=== PATIENT | male | born 1980 | race Caucasian/White ===

== ENCOUNTER → 2017-09-04 | Outpatient (CLI) | payer OTHER ==
[~2017-09-04] MED LIST: METHACHOLINE KIT (J7674) INH ONE
--- NOTE | 2017-09-04 16:06 | PFTRPT ---
Tech: Carlos OBRIEN RRT Age: 37 Sex: Male Race: Height: 71.00 Inches Weight: 230.00 Lbs BSA: 2.24 Diagnosis: EIA METHACHOLINE CHALLENGE REPORT ORDERING PROVIDER: Marino Mondragon MD DATE OF SERVICE: 09/04/17 INTERPRETATION: The study was of excellent technical quality. Under protocol, methacholine was administered. At a dose of 10 mg (63.875 CDUs), a 26% decline in the FEV1 was noted. The PC20 of 4.5 is significant. Flow rates returned to baseline post bronchodilator administration. IMPRESSION: Positive methacholine challenge study. MTDD
== END ==
LOC: M CARPUL 14:49
PROVIDERS: ATTEND Internal Medicine
DX: R06.00 Dyspnea, unspecified (principal)
CPT/HCPCS: 94070; J7674